=== PATIENT | male | born 1985 | race Asian ===

== ENCOUNTER 2020-07-31 21:39 | Emergency (ER) | payer BC ==
[~2020-07-31] VITALS: Ht 172.7 cm; Wt 128.0 kg
[2020-07-31 22:10] VITALS: Ht 172.7 cm; Wt 128.0 kg
[2020-08-01 00:26] VITALS: BP 156/110
== END 2020-08-01 00:26 | disposition home or self-care (01) ==
LOC: ED 21:39
DX: S61.411A Laceration without foreign body of right hand, initial encounter (principal); S51.812A Laceration without foreign body of left forearm, initial encounter; W26.0XXA Contact with knife, initial encounter; Y93.51 Activity, roller skating (inline) and skateboarding; Y92.89 Other specified places as the place of occurrence of the external cause
CPT/HCPCS: J2001